=== PATIENT | female | born 1985 | race American Indian/Alaskan Native ===

== ENCOUNTER 2019-12-27 20:17 | Emergency (ER) | payer MEDICAID ==
[2019-12-27 20:29] VITALS: BP 118/83
[2019-12-27 20:53] LABS: Basophils # (Auto) 0.1 K/mm3 (0.0-0.1); Basophils % (Auto) 0.8 % (0.0-1.8); Eosinophils # (Auto) 0.1 K/mm3 (0.0-0.4); Eosinophils % (Auto) 0.7 % (0.0-4.3); Hematocrit 39.5 % (30.3-42.9); Hemoglobin 12.8 gm/dl (10.1-14.3); Lymphocytes # (Auto) 3.3 K/mm3 (1.2-5.4); Lymphocytes % (Auto) 29.9 % (13.4-35.0); Mean Corpuscular HGB Conc 32 % (30-34); Mean Corpuscular Volume 85 fl (79-97); Monocytes % (Auto) 8.9 % (0.0-7.3); Platelet Count 319 K/mm3 (140-440); Red Blood Count 4.65 M/mm3 (3.65-5.03); Red Cell Distribution Width 14.1 % (13.2-15.2)
[2019-12-27 20:56] LABS: Bacteria,Urine 1+ /HPF (Negative); Bilirubin,Urine NEG (Negative); Blood,Urine SM (Negative); Color,Urine Yellow (Yellow); Mucus,Urine FEW /HPF; Protein,Urine <15 mg/dL mg/dL (Negative); Urobilinogen,Urine < 2.0 mg/dL (<2.0)
[2019-12-27 21:17] LABS: Alanine Aminotransferase 19 units/L (7-56); Albumin 4.6 g/dL (3.9-5); BUN/Creatinine Ratio 21; Blood Urea Nitrogen 17 mg/dL (7-17); Calcium 9.4 mg/dL (8.4-10.2); Hemolysis Index 11
--- NOTE | 2019-12-27 23:13 | Ultrasound Report ---
US OB <= 14 weeks fetus, US OB transvaginal INDICATION / CLINICAL INFORMATION: , bleeding. COMPARISON: None available. FINDINGS: Uterus measures 7.6 cm. Endometrial stripe thickness is 1 cm. No evidence of intrauterine . The right ovary measures 1.7 x 1.4 cm and is normal. The left ovary measures 2.5 x 1.9 cm and is normal. No fluid collections are seen in the cul-de-sac. IMPRESSION: 1. No evidence of intrauterine , negative pelvic ultrasound. Signer Name: Carlos Eduardo Trinidad MD Signed: 12/27/2019 11:09 PM Workstation Name: [id number]
[2019-12-27] MEDS ORDERED: ACETAMINOPHEN 500 MG TAB PO ONE (23:25)
[2019-12-27] MEDS ORDERED: PROMETHAZINE 25 MG TAB PO ONE (23:25)
--- NOTE | 2019-12-27 23:57 | Emergency Department Report ---
ED Female HPI - General Chief complaint: Vaginal Bleeding Stated complaint: POSS MISCARRIAGE Source: patient Mode of arrival: Ambulatory Limitations: No Limitations - History of Present Illness Initial comments: Patient is a A1 34-year-old -[place] female who is approximately 3 to 4 weeks gestation and who presented to the ED with acute onset persistent pelvic pain with vaginal bleeding which initially started as spotting but which subsequently became heavier in the last 12 hours. Patient states that the pain is crampy and sharp and worse than her regular dysmenorrhea. Patient denies fever, chills, nausea, vomiting, dysuria, urinary frequency and urgency, vaginal discharge, low back pain, dizziness, syncope, chest pain or shortness of breath. Patient states that she had a positive home test over 1 week ago and went to her [employer] physician who extrapolated her dates based on her LMP and stated that she may be 5 weeks . Patient denies fall, heavy lifting, traumatic injury or diarrhea. MD Complaint: vaginal bleeding, pelvic pain -: Sudden, hour(s) (12) Location: suprapubic, other (vaginal) Radiation: non-radiating Severity: moderate Severity scale (0 -10): 6 Quality: cramping, sharp Consistency: constant Improves with: none Worsens with: none Are you Now?: Yes (Tested positive for 1 week ago) Last Menstrual Period: 11/17/19 EDC: 08/23/20 Associated Symptoms: denies other symptoms, vaginal bleeding, abdominal pain (suprapubic). denies: vaginal discharge, nausea/vomiting, fever/chills, headaches, loss of appetite, dysuria, hematuria, rash, shortness of breath, syncope - Related Data Sexually active: Yes : 3 Para: 1 A: 1 Previous Rx's Medication Instructions Recorded Last Taken Type Acetaminophen [Tylenol] 500 mg PO Q6HR PRN #30 tablet 12/28/19 Unknown Rx Allergies Allergy/AdvReac Type Severity Reaction Status Date / Time No Known Allergies Allergy Unverified 12/27/19 20:51 ED Review of Systems ROS: Stated complaint: POSS MISCARRIAGE Other details as noted in HPI Constitutional: denies: chills, fever Eyes: denies: eye pain, eye discharge, vision change ENT: denies: ear pain, throat pain Respiratory: denies: cough, shortness of breath, wheezing Cardiovascular: denies: chest pain, palpitations Endocrine: no symptoms reported Gastrointestinal: abdominal pain (suprapubic), nausea. denies: diarrhea Genitourinary: abnormal menses (heavy vaginal bleeding, ). denies: urgency, dysuria, discharge Musculoskeletal: denies: back pain, joint swelling, arthralgia Skin: denies: rash, lesions Neurological: denies: headache, weakness, paresthesias Psychiatric: denies: anxiety, depression Hematological/Lymphatic: denies: easy bleeding, easy bruising ED Past Medical Hx - Past Medical History Previous Medical History?: Yes Hx Hypertension: Yes - Surgical History Past Surgical History?: No - Social History Smoking Status: Never Smoker Substance Use Type: Alcohol - Medications Home Medications: Home Medications Medication Instructions Recorded Confirmed Last Taken Type Acetaminophen [Tylenol] 500 mg PO Q6HR PRN #30 tablet 12/28/19 Unknown Rx ED Physical Exam - General Limitations: No Limitations General appearance: alert, in no apparent distress - Head Head exam: Present: atraumatic, normocephalic, normal inspection - Eye Eye exam: Present: normal appearance, PERRL, EOMI Pupils: Present: normal accommodation - ENT ENT exam: Present: normal exam, normal orophraynx, mucous membranes moist, TM's normal bilaterally, normal external ear exam - Neck Neck exam: Present: normal inspection, full ROM - Respiratory Respiratory exam: Present: normal lung sounds bilaterally. Absent: respiratory distress, wheezes, chest wall tenderness, accessory muscle use, decreased breath sounds, prolonged expiratory - Cardiovascular Cardiovascular Exam: Present: regular rate, normal rhythm, normal heart sounds. Absent: systolic murmur, diastolic murmur, rubs, gallop - GI/Abdominal GI/Abdominal exam: Present: soft, tenderness (Palpable suprapubic tenderness with no guarding or rebound), normal bowel sounds. Absent: guarding, rebound - Bi-manual exam: Present: other (Pelvic exam deferred) - Extremities Exam Extremities exam: Present: normal inspection, full ROM, normal capillary refill - Back Exam Back exam: Present: normal inspection, full ROM. Absent: tenderness, CVA tenderness (R), CVA tenderness (L), muscle spasm, paraspinal tenderness, vertebral tenderness - Neurological Exam Neurological exam: Present: alert, oriented X3, CN II-XII intact, normal gait, reflexes normal - Psychiatric Psychiatric exam: Present: normal affect, normal mood - Skin Skin exam: Present: warm, dry, intact, normal color. Absent: rash ED Course Vital Signs 12/27/19 20:27 Temperature 98.6 F Pulse Rate 76 Respiratory 18 Rate Blood Pressure 118/83 [Right] O2 Sat by Pulse 99 Oximetry ED Medical Decision Making - Lab Data Result diagrams: 12/27/19 20:41 12/27/19 20:41 - Radiology Data Radiology results: report reviewed, image reviewed Findings [facility] [address] [place] [address] Ultrasound Report Signed Patient: MO HOFFMAN MR#: [id number] : 1985 Acct:[id number] Age/Sex: 34 / F ADM Date: 12/27/19 Loc: ED Attending Dr: Ordering Physician: AMINAH PAULINO Date of Service: 12/27/19 Procedure(s): US OB transvaginal Accession Number(s): [id number] cc: AMINAH PAULINO US OB <= 14 weeks fetus, US OB transvaginal INDICATION / CLINICAL INFORMATION: , bleeding. COMPARISON: None available. FINDINGS: Uterus measures 7.6 cm. Endometrial stripe thickness is 1 cm. No evidence of intrauterine . The right ovary measures 1.7 x 1.4 cm and is normal. The left ovary measures 2.5 x 1.9 cm and is normal. No fluid collections are seen in the cul-de-sac. IMPRESSION: 1. No evidence of intrauterine , negative pelvic ultrasound. Signer Name: Carlos Eduardo Trinidad MD Signed: 12/27/2019 11:09 PM Workstation Name: [id number] Transcribed By: ANDERSON Dictated By: Carlos Eduardo Trinidad MD Electronically Authenticated By: Carlos Eduardo Trinidad MD Signed Date/Time: 12/27/192308 DD/ 06 TD/TT: - Medical Decision Making This is a A1 34-year-old -[place] female with approximately 3 to 4 weeks gestation based on the LMP and who presented to the ED with complaint of acute onset pelvic pain and vaginal bleeding for the last 12 hours worse in the last 6 hours. In the ED, patient is alert and oriented x3 and is not in any distress with normal vital signs. Lab test results were reviewed and are all nonactionable except for hCG quant of 248. Patient was treated for pain with Tylenol and also given antiemetics Phenergan. Transvaginal or pelvic ultrasound shows no evidence of intrauterine . On reevaluation, patient's pain is well controlled with medications. Based on the patient's LMP, lab test results showing hCG quant of 248 and negative IUP by transvaginal and pelvic ultrasound, patient was advised to maintain a complete pelvic rest and return to the ED or to her [employer] physician within 48 hours for recheck of her hCG quant to determine the viability of the since ectopic cannot be ruled out either. Patient verbalized understanding. Otherwise patient was advised to return to the ED immediately if her symptoms get worse. - Differential Diagnosis Ectopic ; Threatened miscarriage; UTI; Ovarian cyst; Subchorionic Critical care attestation.: If time is entered above; I have spent that time in minutes in the direct care of this critically ill patient, excluding procedure time. ED Disposition Clinical Impression: Threatened miscarriage in early , Acute pelvic pain, female Abdominal pain in Qualifiers: Trimester: first trimester Qualified Code(s): O26.891 - Other specified related conditions, first trimester; R10.9 - Unspecified abdominal pain Disposition: DC- TO HOME OR SELFCARE Is pt being admited?: No Does the pt Need Aspirin: No Condition: Stable Instructions: Threatened Miscarriage (ED), Abdominal Pain in (ED) Additional Instructions: All your lab test results are unremarkable except for hCG quant of 248. Transvaginal ultrasound is negative for any IUP at this time. Therefore maintain a complete pelvic rest with no physical or strenuous activity or sexual activity. Return to the ED or to your [employer] physician in 48 hours for recheck of your hCG quant to determine the viability of the at this time. Based on the imaging report, it may also mean that the is too early to characterize on transvaginal ultrasound because it is too early. Return to the ED immediately if symptoms get worse. Prescriptions: Acetaminophen [Tylenol] 500 mg PO Q6HR PRN #30 tablet PRN Reason: Pain , Severe (7-10) Referrals: TUNG RIVERS MD [Primary Care Provider] - 3-5 Days Time of Disposition: 23:57 Print Language: FAROESE
== END 2019-12-28 00:23 | disposition home or self-care (01) ==
LOC: ED 20:17
DX: O20.0 Threatened abortion (principal); Z79.899 Other long term (current) drug therapy; Z3A.01 Less than 8 weeks gestation of pregnancy
CPT/HCPCS: 36415; 76801; 76817; 80053; 81001; 84702; 85025; 86900; 86901; Q0169